=== PATIENT | male | born 1975 | race Caucasian/White ===

== ENCOUNTER 2023-09-08 13:30 | Inpatient (IN) | payer BC ==
[2023-09-08 14:11] VITALS: BMI 23.6
[2023-09-11] MEDS ORDERED: Thrombin 5000 UNITS/5 ML VIAL ONE (06:26)
[2023-09-11] MEDS ORDERED: CEFAZOLIN 2 GM VIAL ONE (07:06)
[2023-09-11] MEDS ORDERED: Sodium Chloride 0.9% 100 ML ONE ×2 (07:06→08:52)
[2023-09-11] MEDS ORDERED: Dexamethasone 20 MG/5 ML VIAL ONE (07:12)
[2023-09-11] MEDS ORDERED: PROPOFOL 20 ML ONE (07:12)
[2023-09-11] MEDS ORDERED: SUGAMMADEX SODIUM 200 MG/2 ML VIAL ONE ×2 (07:12→10:22)
[2023-09-11] MEDS ORDERED: fentaNYL PF 100 MCG/2 ML SYRINGE ONE (07:12)
[2023-09-11] MEDS ORDERED: Rocuronium Bromide 10 MG/ML (10ML VIAL) ONE ×4 (07:12→09:39)
[2023-09-11] MEDS ORDERED: Lidocaine 1% PF 5 ML VIAL ONE ×2 (07:12→07:40)
[2023-09-11] MEDS ORDERED: Ondansetron PF 4 MG/2 ML Vial ONE ×2 (07:12→07:40)
[2023-09-11] MEDS ORDERED: Midazolam HCl 2 mg/2 ml Vial ONE (07:13)
[2023-09-11] MEDS ORDERED: PHENYLEPHRINE-NS 100 MCG/ML 10 ML SYRINGE ONE ×2 (07:40→07:56)
[2023-09-11] MEDS ORDERED: PROPOFOL 200 MG/20 ML VIAL ONE (07:40)
[2023-09-11] MEDS ORDERED: ePHEDrine Sulfate 50 MG/10 ML VIAL ONE ×2 (07:40→07:50)
[2023-09-11] MEDS ORDERED: HYDROmorphone 2 MG/ML VIAL ONE (07:58)
[2023-09-11] MEDS ORDERED: Phenylephrine 10 MG/ML VIAL ONE (08:52)
[2023-09-11] MEDS ORDERED: Milk Of Magnesia 30 ML UDCUP PO PRN (10:33)
[2023-09-11] MEDS ORDERED: diphenhydrAMINE 25 MG CAP PO PRN (10:33)
[2023-09-11] MEDS ORDERED: Acetaminophen 325 MG TAB PO PRN (10:33)
[2023-09-11] MEDS ORDERED: Non-Formulary Item 1 EACH (Trazodone Hcl [Trazodone Hcl] 100 MG Tablet) PO PRN (10:37)
[2023-09-11] MEDS ORDERED: hydrALAZINE 20 MG/ML VIAL SLOW IVP PRN (10:37)
[2023-09-11] MEDS ORDERED: traZODone HCl 50 MG TAB PO PRN (10:54)
[2023-09-11] MEDS ORDERED: fentaNYL 50 mcg/mL 1 mL Vial ONE (12:08)
[2023-09-11] MEDS ORDERED: HYDROmorphone 0.5 MG/0.5 ML SYRINGE ONE (12:17)
[2023-09-11] MEDS: busPIRone HCl 5 MG TAB PO SCH (14:10)
[2023-09-11] MEDS: CEFAZOLIN 2 GM in Sodium Chloride 0.9% 100 ML IVPB SCH (14:10)
[2023-09-11] MEDS: Gabapentin 100 MG CAP PO SCH (14:10)
[2023-09-11] MEDS: HYDROcodone/Acetaminophen 7.5/325 mg Tablet PO PRN (14:12)
[2023-09-11] MEDS: Ondansetron PF 4 MG/2 ML Vial IVP PRN (14:12)
[2023-09-11] MEDS: Morphine 2 MG/ML VIAL SLOW IVP PRN (14:13)
[2023-09-11] MEDS ORDERED: Non-Formulary Item 1 EACH (Buspirone Hcl [Buspirone Hcl] 15 MG Tablet) PO SCH (15:00)
[2023-09-11] MEDS: Diazepam 5 MG TAB PO PRN (15:55)
[2023-09-11] MEDS: Acetaminophen/Codeine 30-300mg Tablet PO PRN (15:56)
[2023-09-11] MEDS ORDERED: Polyethylene Glycol 3350 17 GM Packet PO PRN (16:30)
[2023-09-11] MEDS: Sodium Chloride 0.9% 1,000 ML IV SCH (18:06)
[2023-09-11] MEDS: Dexamethasone 4 mg/ml Vial SLOW IVP SCH (18:08)
[2023-09-11] MEDS: Ketorolac Tromethamine 30 MG (1 mL) VIAL IVP SCH (18:12)
[2023-09-11] MEDS: fentaNYL 50 mcg/mL 1 mL Vial SLOW IVP PRN (18:13)
[2023-09-11] MEDS: Docusate 100 MG CAP PO SCH (21:31)
[2023-09-11] MEDS: Amitriptyline HCl 100 MG TAB PO SCH (21:32)
[2023-09-11] MEDS: Phenol 177 ML BOT PO PRN (21:49)
[2023-09-11] MEDS ORDERED: Ketorolac Tromethamine 30 MG (1 mL) VIAL IVP PRN (22:00)
[2023-09-12] MEDS: HYDROcodone/Acetaminophen 10/325 mg Tablet PO PRN (05:58)
[2023-09-12] MEDS: Dexamethasone 4 MG TAB PO SCH (06:40)
[2023-09-12] MEDS ORDERED: Non-Formulary Item 1 EACH (Omeprazole [Omeprazole] 20 MG Tablet.Dr) PO SCH (09:00)
[2023-09-12] MEDS: Pantoprazole DR 40 MG TAB PO SCH (09:44)
[2023-09-13 08:30] VITALS: BP 115/71; TEMP 97.7
== END 2023-09-13 15:40 | disposition home or self-care (01) | DRG 471 ==
LOC: SURG A 09-11 06:08 → SJJU 09-11 13:15
PROVIDERS: ADMIT Surgery; ATTEND Surgery
PROC: 0RG10A0 Fusion of Cervical Vertebral Joint with Interbody Fusion Device, Anterior Approach, Anterior Column, Open Approach (ICD-10-PCS; principal; 2023-09-11)
PROC: 0RG40A0 Fusion of Cervicothoracic Vertebral Joint with Interbody Fusion Device, Anterior Approach, Anterior Column, Open Approach (ICD-10-PCS; 2023-09-11)
PROC: 0RB30ZZ Excision of Cervical Vertebral Disc, Open Approach (ICD-10-PCS; 2023-09-11)
PROC: 0RB50ZZ Excision of Cervicothoracic Vertebral Disc, Open Approach (ICD-10-PCS; 2023-09-11)
PROC: 01N10ZZ Release Cervical Nerve, Open Approach (ICD-10-PCS; 2023-09-11)
PROC: 01N80ZZ Release Thoracic Nerve, Open Approach (ICD-10-PCS; 2023-09-11)
PROC: 00NW0ZZ Release Cervical Spinal Cord, Open Approach (ICD-10-PCS; 2023-09-11)
PROC: 00NX0ZZ Release Thoracic Spinal Cord, Open Approach (ICD-10-PCS; 2023-09-11)
DX: M48.02 Spinal stenosis, cervical region (principal); G82.50 Quadriplegia, unspecified; M54.12 Radiculopathy, cervical region; M48.061 Spinal stenosis, lumbar region without neurogenic claudication; M54.16 Radiculopathy, lumbar region; Z79.899 Other long term (current) drug therapy
CPT/HCPCS: 93005; 93010; C1713; J1100; J1170; J1885; J2272; J2405; J2704; J3010; J3490; J7050; J8540

== ENCOUNTER 2023-09-08 13:42 | Outpatient (CLI) | payer BC ==
[2023-09-08 15:17] LABS: Hematocrit 44.1 % (38.8-50.0); Hemoglobin 14.9 g/dL (13.5-17.5); Mean Corpuscular HGB CONC 33.8 g/dL (32.0-36.0); Mean Corpuscular Hemoglobin 28.2 pg (27.0-33.0); Mean Corpuscular Volume 83.4 fL (81.2-95.1); Mean Platelet Volume 9.6 fL (7.4-10.4); Platelet Count 394 10x3/uL (150-450); RBC Distribution Width 13.4 % (11.5-14.5); Red Blood Cell (RBC) Count 5.29 10x6/uL (4.32-5.72); White Blood Cell (WBC) Count 8.2 10x3/uL (3.5-10.5)
[2023-09-08 15:42] LABS: Anion Gap 15 mmol/L (10-20); BUN (Urea Nitrogen) 10 mg/dL (8.9-20.6); Calc. Creatinine Clearance 0 mL/min (70-130); Calcium 9.4 mg/dL (7.8-10.44); Carbon Dioxide 25 mmol/L (22-29); Chloride 103 mmol/L (98-107); Estimated GFR 101; Glucose 86 mg/dL (70-105); Potassium 3.8 mmol/L (3.5-5.1); Sodium 139 mmol/L (136-145)
[2023-09-08 16:06] LABS: INR-International Normal Ratio 1.1; PTT 28.7 sec (22.0-33.0); Prothrombin Time 11.4 sec (9.5-12.1)
== END 2023-09-08 13:43 | disposition home or self-care (01) ==
LOC: LABBT 13:42
PROVIDERS: ATTEND Surgery
DX: Z01.818 Encounter for other preprocedural examination (principal); M48.02 Spinal stenosis, cervical region; M54.12 Radiculopathy, cervical region; Z98.1 Arthrodesis status
CPT/HCPCS: 80048; 85027; 85610; 85730; 93005; 93010